=== PATIENT | female | born 1965 | race Native Hawaiian/Other Pacific Islander ===

== ENCOUNTER 2016-09-23 18:21 | Emergency (ER) | payer OTHER ==
[~2016-09-23] VITALS: Ht 165.1 cm; Wt 72.6 kg
[2016-09-23 18:25] VITALS: TEMP 98.6
[2016-09-23 22:09] VITALS: BP 167/76
== END 2016-09-23 22:16 | disposition home or self-care (01) ==
LOC: ED 18:21
PROC: 2W3DX1Z Immobilization of Left Lower Arm using Splint (ICD-10-PCS; principal; 2016-09-23)
DX: S62.102A Fracture of unspecified carpal bone, left wrist, initial encounter for closed fracture (principal); M79.671 Pain in right foot; W01.0XXA Fall on same level from slipping, tripping and stumbling without subsequent striking against object, initial encounter; Y92.098 Other place in other non-institutional residence as the place of occurrence of the external cause
CPT/HCPCS: 99283; J1885